=== PATIENT | male | born 1950 | race Caucasian/White ===

== ENCOUNTER 2017-04-24 10:00 | Day surgery (SDC) | payer OTHER ==
[2017-04-24] MEDS ORDERED: NS 500 ML IV ONE (10:07)
[2017-04-24] MEDS ORDERED: MIDAZOLAM 2 MG/2 ML VIAL IVP ONE (10:07)
[2017-04-24] MEDS ORDERED: ATROPINE SULFATE 1 MG/10 ML SYR IVP ONE (10:07)
[2017-04-24] MEDS ORDERED: fentaNYL 100 MCG/2 ML INJ IVP ONE (10:07)
[2017-04-24] MEDS ORDERED: BENZOCAINE UNIT DOSE SPRAY HURRICAINE MM ONE (10:07)
[2017-04-24] MEDS ORDERED: APIXABAN 5 MG TAB ONE (10:23)
[2017-04-24] MEDS ORDERED: APIXABAN 5 MG TAB PO ONE (10:30)
--- NOTE | 2017-04-24 10:30 | PDANEPAE ---
ANE History of Present Illness SHAHRZAD/CV ANE Past Medical History - Cardiovascular History Hx Hypertension: Yes Hx Arrhythmias: Yes ANE Review of Systems Review of Systems: some SOB with afib RVR currently ANE Patient History - Allergies Allergies/Adverse Reactions: No Known Allergies Allergy (Unverified 04/24/17 10:06) - Home Medications Home medications: home medication list seen and reviewed - NPO status NPO Status: no food or drink >8 hours - Anes Hx Anes Hx: no prior problems - Alcohol Use Alcohol Use: None - Family Anes Hx Family Anes Hx: none ANE Labs/Vital Signs - Labs Result Diagrams: 04/24/17 10:20 ANE Physical Exam - Airway Neck exam: FROM Mallampati Score: Class 1 Mouth exam: normal dental/mouth exam - Pulmonary Pulmonary: no respiratory distress - Cardiovascular Cardiovascular: irregularly irregular, tachycardia - ASA Status ASA Status: III ANE Anesthesia Plan Total IV Anesthesia: Yes
[2017-04-24] MEDS ORDERED: PROPOFOL 200 MG/20 ML VIAL ONE (10:31)
--- NOTE | 2017-04-24 10:31 | POSTANESTH ---
Post Anesthetic Evaluation Cardiovascular Status: Normal, Stable Respiratory Status: Normal, Stable, Similar to Pre-op Cond. Level of Consciousness/Mental Status: Can Participate in Eval, Moderately Sleepy Pain Control: Adequate, Prn Tx Ordered Nausea/Vomiting Control: Adequate, Prn Tx Ordered Complications Possibly Related to Anesthesia: None Noted
[2017-04-24 10:37] LABS: INR 1.09 (0.83-1.16); PROTIME(PATIENT) 14.3 SEC (12.0-15.0)
--- NOTE | 2017-04-24 10:39 | PDHPUP ---
History & Physical Update H&P update statement: This history and physical update is based on an assessment of the patient which was completed after admission or registration (within 24 hours), but prior to the surgery/procedure. H&P update: H&P reviewed & patient examined, no change in patient's condition since H&P completed
--- NOTE | 2017-04-24 11:20 | CPEKG ---
Heart Rate: 71 RR Interval: 845 P-R Interval: 140 QRSD Interval: 94 QT Interval: 400 QTC Interval: 435 P [place]: 65 QRS [place]: -62 T Wave [place]: 43 EKG Severity - ABNORMAL ECG - EKG Impression: SINUS RHYTHM EKG Impression: LEFT ANTERIOR FASCICULAR BLOCK Electronically Signed By: Panda Smith 24-Apr-2017 12:59:41
--- NOTE | 2017-04-24 11:23 | PDTEE1 ---
SHAHRZAD Cardioversion Procedure Procedure: electrical cardioversion, transesophageal echo Indications: atrial fibrillation Consent: signed and in chart Anticoagulation: eliquis Procedural Details: Consents for anesthesia, SHAHRZAD, and possible cardioversion, were signed and placed in the chart. Pacer/cardioversion pads were placed on anterior chest and posterior back. Risks and benefits of the procedures were discussed with the patient and family. Given the atrial fibrillation duration of >12 hours, we dosed the patient with Eliquis (5 mg) which will be continued post procedure, regardless of findings. [id number] score is 1 for age 65. Sedation was started, and adult SHAHRZAD probe was attempted without success. After mild obstruction was noted, we opted to proceed with pediatric probe. Pediatric probe was placed without difficultly, and standard views were obtained. Preliminary results: Mild suppression of LVEF noted (heart rate was >150 bpm and irregular, consistent with atrial fibrillation diagnosis). Atrial chamber dimensions were grossly normal. Trileaflet aortic valve with mild insufficiency, but no sclerosis or stenosis. Mild mitral regurgitation was noted. Mild to moderate tricuspid regurgitation noted. Grossly normal pulmonic valve with physiologic insufficiency appreciated. No thrombus to the left atrial appendage (pressures were > 40). Bubble contrast injection did reveal passage of contrast from the right side to the left side (small number of bubbles). Very minimal "smoke" was noted in the left atrium. No complications were appreciated, and given lack of thrombus, we opted to proceed with cardioversion. A single shock at 200 J (sync) was delivered with heart rate from 155 bpm to 85 bpm (normal sinus rhythm). No complications were appreciated, and the patient was recovered. Would maintain therapy on Eliquis (5 mg twice per day), and arrange for follow up with cardiology this week. Would continue scheduled beta regulo, maintain hydration, and consider 30 day event monitor to determine if there are more episodes of pAF that are occurring. Patient has been seen by Dr. Alessandra Smith in the past, would maintain EP following. Synchronized cardioversion attempt #1: 200J Results: normal sinus rhythm Conclusions: successful SHAHRZAD cardioversion
== END 2017-04-24 12:40 | disposition home or self-care (01) ==
LOC: FCATH 10:00
PROVIDERS: ATTEND Internal Medicine Cardiovascular Disease
DX: I48.91 Unspecified atrial fibrillation (principal); I10 Essential (primary) hypertension
CPT/HCPCS: J2704

== ENCOUNTER 2017-05-17 08:05 | Day surgery (SDC) | payer OTHER ==
[2017-05-17] MEDS ORDERED: FAMOTIDINE 20 MG TAB PO ONE (08:09)
[2017-05-17] MEDS ORDERED: NS 1,000 ML IV ONE (08:09)
[2017-05-17] MEDS ORDERED: ASPIRIN EC 325 MG TAB PO ONE ×2 (08:09→08:41)
[2017-05-17] MEDS ORDERED: DIAZEPAM 5 MG TAB PO ONE (08:09)
[2017-05-17] MEDS ORDERED: diphenhydrAMINE 25 MG CAP PO ONE ×2 (08:09→08:40)
[2017-05-17] MEDS ORDERED: DIAZEPAM 5 MG TAB ONE (08:41)
[2017-05-17] MEDS ORDERED: FAMOTIDINE 20 MG TAB ONE (08:41)
--- NOTE | 2017-05-17 08:43 | CPEKG ---
Heart Rate: 66 RR Interval: 909 P-R Interval: 160 QRSD Interval: 98 QT Interval: 436 QTC Interval: 457 P [place]: 78 QRS [place]: -61 T Wave [place]: 52 EKG Severity - ABNORMAL ECG - EKG Impression: SINUS RHYTHM EKG Impression: LEFT ANTERIOR FASCICULAR BLOCK Electronically Signed By: Panda Smith 17-May-2017 09:05:27
--- NOTE | 2017-05-17 08:44 | PDPROPOC ---
Sedation Plan of Care Sedation Plan of Care: vital signs stable, mental status noted, patient educated of risks, benefits, alternatives, patient can tolerate sedation ASA Classification: ASA 2 Planned drugs: fentanyl, midazolam Mallampati Score: Class 2 Mallampati Reference Image: Patient passed 3-3-2 rule?: Yes
[2017-05-17] MEDS ORDERED: VERAPAMIL 5 MG/2 ML VIAL ONE (08:45)
[2017-05-17] MEDS ORDERED: MIDAZOLAM 2 MG/2 ML VIAL ONE (08:45)
[2017-05-17] MEDS ORDERED: LIDOCAINE 1% 300 MG/30 ML SDV ONE (08:45)
[2017-05-17] MEDS ORDERED: fentaNYL 100 MCG/2 ML INJ ONE (08:45)
[2017-05-17] MEDS ORDERED: HEPARIN 10,000 UNIT/10 ML MDV (1,000 UNIT/ML) ONE (08:46)
[2017-05-17] MEDS ORDERED: IOPAMIDOL (ISOVUE-370) 150 ML BTL IV ONE (08:46)
--- NOTE | 2017-05-17 08:46 | PDGENHP ---
History & Physical Chief Complaint: abnormal ett History of Present Illness: 66 yo with afib, recent abnormal mpi for evaluation. Pertinent Past, Social, Family History: none Relevant Physical Exam: No JVP. Chest clear. Cor RRR. Abdomen soft. Cardiorespiratory Assessment: No contraindications to angiography identified. Indications A. with afib and abnormal MPI.
[2017-05-17 09:07] LABS: PLATELET COUNT 162 10^3/uL (150-400)
[2017-05-17 09:22] LABS: INR 1.05 (0.83-1.16); PROTIME(PATIENT) 13.9 SEC (12.0-15.0)
--- NOTE | 2017-05-17 09:41 | PDDXCAT ---
Diagnostic Cath Note - . 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 Complications: None Estimated blood loss: <50ml Closure method: TR Band Assessment: Normal Cors. Normal LV systolic function an filling pressures. Plan: Primary prevention. On going management of atrial fibrillation. Intervention: 70 CC's contrast 4mg versed 100ug Fentanyl 119 mGy and 4.1 minutes of fluro Patient Problems: Problems Problem Status Onset Abnormal exercise myocardial perfusion study Acute Atrial fibrillation Acute
== END 2017-05-17 13:12 | disposition home or self-care (01) ==
LOC: FCATH 08:05
PROVIDERS: ATTEND Internal Medicine Interventional Cardiology
DX: R94.39 Abnormal result of other cardiovascular function study (principal); I48.0 Paroxysmal atrial fibrillation; Z82.49 Family history of ischemic heart disease and other diseases of the circulatory system
CPT/HCPCS: 93005; 93458; C1769; J1644; J2250; J3010; Q9967